=== PATIENT | male | born 1975 ===

== ENCOUNTER 2016-11-01 18:07 | Emergency (ER) | payer SELFPAY ==
--- NOTE | 2016-11-01 18:32 | EDM.PDOC ---
ED HPI GENERAL MEDICAL PROBLEM - General Chief Complaint: Lower Extremity Injury/Pain Stated Complaint: BRUSES ON BOTH LEGS Time Seen by Provider: 11/01/16 18:29 Source of Information: Reports: Patient History Limitations: Reports: No Limitations - History of Present Illness INITIAL COMMENTS - FREE TEXT/NARRATIVE: HISTORY AND PHYSICAL: []41-year-old male presents with bruising to the lower right leg Stomach pain History of Present Illness: []Patient denies any injury he has been seen at [facility] last [place] 6 days ago for stomach pains chest tightness. He does not have those results yet. Review of Systems: As per history of present illness and below otherwise all systems reviewed and negative. Past medical history: As per history of present illness and as reviewed below otherwise noncontributory. Surgical history: As per history of present illness and as reviewed below otherwise noncontributory. Social history: No reported history of drug or alcohol abuse. Family history: As per history of present illness and as reviewed below otherwise noncontributory. Physical exam: Alert and oriented male who is speaking in full sentences. Does not look toxic. HEENT: Atraumatic, normocehpalic, pupils reactive, negative for conjunctival pallor or scleral icterus, mucous membranes moist, throat clear, neck supple, nontender, trachea midline. Lungs: Clear to auscultation, breath sounds equal bilaterally, chest non tender. Heart: S1S2, regular, negative for clicks, rubs, or JVD. Abdomen: Soft, nondistended, tender to mid epigastric region with palpation area. No rebound no guarding. Negative for masses or hepatossplenmegaly. Negative for costovertebral tenderness. Pelvis: Stable nontender. Genitourinary: Deferred. Rectal: Deferred Extremities: Atraumatic, negative for cords or calf pain. Neurovascular unremarkable. Neuro: Awake, alert, oriented. Cranial nerves II through XII unremarkable. Cerebellum unremarkable. Motor and sensory unremarkable throughout. Exam nonfocal. Diagnostics: [Venous Doppler right leg, CBC CMP, PT/INR all negative for DVT or blood abnormality] Therapeutics: GI cocktail[] Impression: [#1 epigastric pain] #2 right leg pain and ecchymosis Plan: []Discharged to home No emergent reasons were noted for the bruising to your lower leg Follow-up with your clinic tomorrow for results of testing done there Definitive disposition and diagnosis as appropriate pending reevaluation and review of above. Onset: Sudden Duration: Day(s): (7), Getting Worse Location: Reports: Lower Extremity, Right Right Foot/Ankle/Leg Pain Score (Numeric/FACES): 6 - Related Data Allergies Allergy/AdvReac Type Severity Reaction Status Date / Time No Known Allergies Allergy Verified 11/01/16 18:26 Home Meds: Home Meds . [No Known Home Meds] 11/01/16 [History] Review of Systems - Review of Systems Review Of Systems: ROS reveals no pertinent complaints other than HPI. ED EXAM, GENERAL - Physical Exam Exam: See Below (see dictation) Course - Vital Signs Last Recorded V/S: Last Vital Signs Temp 36.1 C 11/01/16 18:26 Pulse 78 11/01/16 18:26 Resp 20 11/01/16 18:26 BP 155/82 H 11/01/16 18:26 Pulse Ox 95 11/01/16 18:26 - Orders/Labs/Meds Orders: Active Orders 24 hr Category Date Time Status Venous Doppler Lwr Ext Rt [US] Stat Exams 11/01/16 18:29 Taken Labs: Laboratory Tests 11/01/16 11/01/16 11/01/16 Range/Units 20:17 20:17 20:17 WBC 7.54 (4.0-11.0) K/uL RBC 5.03 (4.50-5.90) M/uL Hgb 15.0 (13.0-17.0) g/dL Hct 43.7 (38.0-50.0) % MCV 86.9 (80.0-98.0) fL MCH 29.8 (27.0-32.0) pg MCHC 34.3 (31.0-37.0) g/dL RDW Std Deviation 40.8 (28.0-62.0) fl RDW Coeff of Evan 13 (11.0-15.0) % Plt Count 200 (150-400) K/uL MPV 11.30 (7.40-12.00) fL Neut % (Auto) 58.4 (48.0-80.0) % Lymph % (Auto) 31.8 (16.0-40.0) % [place] % (Auto) 6.8 (0.0-15.0) % Eos % (Auto) 2.9 (0.0-7.0) % Baso % (Auto) 0.1 (0.0-1.5) % Neut # (Auto) 4.4 (1.4-5.7) K/uL Lymph # (Auto) 2.4 (0.6-2.4) K/uL [place] # (Auto) 0.5 (0.0-0.8) K/uL Eos # (Auto) 0.2 (0.0-0.7) K/uL Baso # (Auto) 0.0 (0.0-0.1) K/uL Nucleated RBC % 0.0 /100WBC Nucleated RBCs # 0 K/uL INR 0.94 (0.86-1.11) Sodium 141 (136-146) mmol/L Potassium 4.1 (3.5-5.1) mmol/L Chloride 107 (98-110) mmol/L Carbon Dioxide 25 (21-31) mmol/L BUN 15 (6.0-23.0) mg/dL Creatinine 1.3 (0.6-1.5) mg/dL Est Cr Clr Drug Dosing 73.08 mL/min Estimated GFR (MDRD) > 60.0 ml/min Glucose 92 (60-110) mg/dL Calcium 9.4 (8.8-10.8) mg/dL Total Bilirubin 0.6 (0.1-1.5) mg/dL AST 46 H (5-40) IU/L ALT 54 (8-54) IU/L Alkaline Phosphatase 90 (40-150) Total Protein 6.5 (6.0-8.0) g/dL Albumin 4.1 (3.5-5.0) g/dL Globulin 2.4 (2.0-3.5) g/dL Albumin/Globulin Ratio 1.7 (1.3-2.8) Meds: Medications Discontinued Medications Generic Name Dose Route Start Last Admin Trade Name Freq PRN Reason Stop Dose Admin Al Hydroxide/Mg Hydroxide 15 0 ml 11/01/16 20:10 11/01/16 20:25 ml/ Metoclopramide HCl 5 mg/ PO 11/01/16 20:11 15 each Lidocaine HCl 5 ml ONETIME ONE Administration Departure - Departure Time of Disposition: 20:58 Disposition: Home, Self-Care 01 Condition: Good Clinical Impression: Epigastric abdominal pain Superficial bruising of lower leg Qualifiers: Encounter type: initial encounter Laterality: right Qualified Code(s): S80.11XA - Contusion of right lower leg, initial encounter - Discharge Information Referrals: PCP,None [Primary Care Provider] - Forms: ED Department Discharge Additional Instructions: The following information is given to patients seen in the emergency department who are being discharged to home. This information is to outline your options for follow-up care. We provide all patients seen in our emergency department with a follow-up referral. The need for follow-up, as well as the timing and circumstances, are variable depending upon the specifics of your emergency department visit. If you don't have a primary care physician on staff, we will provide you with a referral. We always advise you to contact your personal physician following an emergency department visit to inform them of the circumstance of the visit and for follow-up with them and/or the need for any referrals to a consulting specialist. The emergency department will also refer you to a specialist when appropriate. This referral assures that you have the opportunity for followup care with a specialist. All of these measure are taken in an effort to provide you with optimal care, which includes your followup. Under all circumstances we always encourage you to contact your private physician who remains a resource for coordinating your care. When calling for followup care, please make the office aware that this follow-up is from your recent emergency room visit. If for any reason you are refused follow-up, please contact the [facility] emergency department at and asked to speak to the emergency department charge nurse. For your abdominal epigastric pain try [id number] omeprazole 1 tablet daily Ultrasound of your right leg did not identify any blood clots Blood work did not show any signs of infection or abnormalities Follow up with your clinic tomorrow - My Orders Last 24 Hours: My Active Orders 11/01/16 18:29 Venous Doppler Lwr Ext Rt [US] Stat - Assessment/Plan Last 24 Hours: My Active Orders 11/01/16 18:29 Venous Doppler Lwr Ext Rt [US] Stat
[2016-11-01] MEDS ORDERED: Alum Hydrox/Mag Hydrox/Simeth 15 ML, Metoclopramide 5 MG, Lidocaine 2% 5 ML PO ONE ×3 (20:10)
[2016-11-01 20:45] LABS: CHLORIDE,CL 107 mmol/L (98-110); SODIUM,NA 141 mmol/L (136-146)
[2016-11-01 21:14] VITALS: BP 138/87
--- NOTE | 2016-11-02 09:44 | US ---
EXAM DATE: 11/01/16 PATIENT'S AGE: 41 Patient: TY MAGANA Facility: [place], [place] Site . Site : [id number] Study: US Extremity Right [id number] 7:07:38 PM Ordering Physician: Doctor Chew Final Report: INDICATION: Pain and TECHNIQUE: Ultrasound venous duplex lower right extremity. Compression venous exam was performed using chacon-scale, color Doppler, and spectral Doppler imaging. COMPARISON: None available FINDINGS: Sonographic imaging demonstrates the right common femoral, superficial femoral and popliteal veins to be fully compressible with normal color Doppler blood flow. Doppler flow is documented in the visualized below-knee venous structures , however compressibility is not evaluated. Hypoechoic foci in regions of some of the compressed veins are reported to be artifactual, extravascular, by the glue machine operator. IMPRESSION: No definite evidence of a deep venous thrombosis in the right lower extremity. Dictated by Eric Cardona MD @ 11/01/2016 7:52:39 PM Dictated by: Eric Cardona MD @ 11/01/2016 19:52:46 (Electronic Signature) Report Signed by Proxy. [facility]
== END 2016-11-01 21:07 | disposition home or self-care (01) ==
LOC: MW.ED 18:07
DX: S80.11XA Contusion of right lower leg, initial encounter (principal); R10.13 Epigastric pain; X58.XXXA Exposure to other specified factors, initial encounter
CPT/HCPCS: 36415; 80053; 85025; 85610; 93971; 99284; A9270; 99283